=== PATIENT | female | born 1950 | race Caucasian/White ===

== ENCOUNTER 2021-09-17 13:00 | Outpatient (RCR) | payer MEDICARE, OTHER, SELFPAY ==
--- NOTE | 2021-08-17 14:58 | HP.PTEVAL ---
Patient's Visit Information BRYAN GARCIA is a 70 year old F referred to Physical Therapy by BRENDEN Giraldo with a diagnosis of FM. Date of Evaluation: 08/17/21 Physical Therapist: Onesimo Pretty, RENETTAT, OCS, CSCS - Visit Plan Frequency: 2x /Week Duration: 4-6 Weeks Plan: Has many allergies and pacemaker...2x/week to please teach HEP with pics for patient to do at home consisting of... HS and quad stretch. rows and pot stirs. bridging and quadruped opposites if tolerates. heel rasies. band sidesteps. squats. RDL. abs and extension. 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 Muscles are too weak. has ALS and she has to stay close by. Knees hurt all over and has bakers cyst . R>L. Up to 6/10 with kneeling or getting up off floor. Steps are 6/10 and has them to do at home. Uses handrail. Typically 1/10 when NWB. Back hurts centrally , no x rays, has hurt for long time since has to transfer > 1 yr. 2/10 at rest, standing too long is 8/10. Sleep is interrupted as it takes her longer time 30 minutes to get to sleep if she has been active. Sitting and MH help. Not employed, retired from [employer]. Homeschools grandchildren and takes care of . 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 Basic ADLs are getting done but they hurt, cleaning is getting difficult to mop floor. No leg numbness or tingling. - Pain LBP Pain Intensity (Out of 10): 1 Pain Intensity Range: 1, 9 Knees Pain Intensity (Out of 10): 1 Pain Intensity Range: 1, 7 - Objective spO2 96 after ambulation and 88 HR. Ambulates I, fatigued only slightly after 400 feet adn steps. Steps reciprocally needing one rail and not shifting weight FW. Transfers I bed and chair. UE AROM WFL. LB AROM ext is mildly painful and min limited, SB hurt centrally and min limited, flexion is tight and not painful, min limited in lumbar region. LE AROM WFL, HS and quads min tight. HIP, knee and ankle aROM WFL. reflexes 2/3 patella and achilles. Sensation LE WNL to gross light touch. strength EL 3+ in hip abd and ext, 4- hip flexion, knee ext and flexion 4- and ankles 4 way 4+/5. No c/o pain with these tests. - Balance/Special Test Scores Lower Extremity Functional Score: 27 - Goals Goal 1:: Full Lumbar ROM without pain Goal Time Frame: 2-4 Weeks Goal 2:: Pt I appropr HEP to limit future problems for strengthening. Goal Time Frame: 2-4 Weeks - Rehabilitation Potential Physical Therapy Diagnosis: weakness limiting function at home and causing pain. Rehabilitation Potential: Good - Anticipated Interventions Patient/Client Instruction: Educate patient on: Condition, Plan of Care For the Purpose of:: To decrease pain, To increase ROM, To improve muscle performance and motor function, To increase tolerance to activity/condition/position Therapeutic Exercise to Include: Strength training, Flexibilty training, Gait and locomotor training, Passive ROM, Active ROM For the Purpose of:: To decrease pain, To improve nutrient delivery to tissue, To improve muscle performance and motor function, To increase tolerance to activity/condition/position, To improve ability of physical actions for home/community/work/leisure Thank you for the opportunity to evaluate your patient. For Medicare and Medicare HMO plans, please review the plan of care and approve it. It will need to be FAXED BACK to us at [phone] for Medicare purposes. For Medicare only, by signing this I certify the plan of care. Please let me know if there are questions or concerns regarding this plan of care. Physician Signature: Date:
--- NOTE | 2021-09-17 13:44 | HP.PTDCSUM ---
It has been my pleasure to treat BRYAN GARCIA referred by BRENDEN Giraldo, with the diagnosis of FM for a total of 8 visit(s). Discharge Date: 09/17/21 Please see the following information for a summary of their discharge status. Subjective: Much better. balance feels better and can do more things at home without as much pain. Knots are gone. knee less swollen. No f/u with doctor.She can take it from here with HEP. LBP Pain Intensity (Out of 10): 2 Knees Pain Intensity (Out of 10): 2 % Improvement: 50 Objective/Function: Good l/S AROM without pain increase today. pt feeling better andd stronger adn i with HEP Goal 1:: Full Lumbar ROM without pain Goal Progress: Goal Met Goal 2:: Pt I appropr HEP to limit future problems for strengthening. Goal Progress: Goal Met Plan: d/c Discharge Comments: will do HEP. If there are questions or concerns regarding this patient's physical therapy, please feel free to call me at [phone]. Thank you for the referral of this patient. Sincerely, Onesimo Pretty, DPT, OCS, CSCS Balance/Gait/Functional tests - Balance/Special Test Scores Lower Extremity Functional Score: 52
== END 2021-09-17 14:16 | disposition home or self-care (01) ==
LOC: PT 13:00
PROVIDERS: PCP Physician Assistant; Referring Provider Physician Assistant; Visit Provider Physician Assistant
DX: M79.7 Fibromyalgia (principal)
CPT/HCPCS: 97110; 97162; 97164

== ENCOUNTER 2024-02-10 14:30 | Outpatient (RCR) | payer MEDICARE, OTHER, SELFPAY ==
--- NOTE | 2023-12-15 10:31 | HP.PTEVAL ---
Patient's Visit Information Visit Information Visit Information: BRYAN GARCIA is a 73 year old F referred to Physical Therapy by VARGHESE Cortes with a diagnosis of CERVICAL RADICULOPATHY. Date of Evaluation: 12/15/23 Physical Therapist: Sravan Nguyễn, PT, Cert MDT, OCS Visit Plan Frequency: 2x /Week Plan: PRECAUTION:PACEMAKER PT INTERVENTIONS CERVICAL /POSTURAL EX'S ,US ,MHP ,MANUALS THERAPY(STM /MANUAL TRACTION) AND TRAIL ICTX Subjective Subjective: This 73 y/o male presents to physical therapy cervical radiculopathy. Patient has cervical pain many years which has progressively worse in right arm. Seen PA recommended PT and x-rays showed DDD severe and foraminal stenosis. Patient sees massage and chiropractor. Patient located cervical base and radicular symptoms to lateral deltoid to elbow . Denies paresthesia/tingling-. Denies BERNSTEIN /tinnitus/nausea. Patient sleeping okay. Aggravating extended sitting ,driving ,turning causing ache.Alleviating massage and heat. Patient pain affects QOL and function/ADLS . Patient goals to decrease pain.PRECAUTION: pacemaker SOCIAL: retired VOCATION:retired Pain Bilateral Neck: Pain Intensity (Out of 10): 2 Pain Intensity Range: 10 Right Shoulder: Pain Intensity (Out of 10): 3 Pain Intensity Range: 10 Objective Objective: POSTURE: mild forward posture ,rounded shoulders head NEURO: denies parestehesia/tingling- C5-6-7 2/3 PALPATION: tender UT/levator/paraspinals AROM: BUE WFL CERVICAL ROM: flexion min loss ,extension mod loss ,rotation/lateral flexion min/mod loss MMT: BUE 4/5 grossly Special Tests C/S Radiculapathy - Left Upper limb tension test: Negative C/S Radiculapathy - Right Upper limb tension test: Negative C/S Radiculapathy - Left Spurlings: Negative C/S Radiculapathy - Right Spurlings: Negative C/S Radiculapathy - Left Cervical distraction: Negative C/S Radiculapathy - Right Cervical distraction: Negative C/S Radiculapathy - Left Relief test: Negative C/S Radiculapathy - Right Relief test: Negative C/S Radiculapathy - Valsalva: Negative Sharp Karen: Negative Vertebral Artery Test: Negative Alar Ligament Test: Negative Cervical Sitting: Protrusion - Mechanical Response: No effect Cervical Sitting: Protrusion - Symptoms During Testing: No effect Cervical Sitting: Protrusion - Symptoms After Testing: No effect Cervical Sitting: Retraction - Mechanical Response: No effect Cervical Sitting: Retraction - Symptoms During Testing: No effect Cervical Sitting: Retraction - Symptoms After Testing: No effect Cervical Sitting: Retraction-Extension - Mechanical Response: No effect Cerv Sitting: Retraction-Extension - Symptoms During Testing: No effect Cerv Sitting: Retraction-Extension - Symptoms After Testing: No effect Cervical Sitting: Sidebend Right - Mechanical Response: No effect Cervical Sitting: Sidebend Right - Symptoms During Testing: No effect Cervical Sitting: Sidebend Right - Symptoms After Testing: No effect Cervical Sitting: Sidebend Left - Mechanical Response: No effect Cervical Sitting: Sidebend Left - Symptoms During Testing: No effect Cervical Sitting: Sidebend Left - Symptoms After Testing: No effect Cervical Sitting: Rotation Right - Mechanical Response: No effect Cervical Sitting: Rotation Right - Symptoms During Testing: No effect Cervical Sitting: Rotation Right - Symptoms After Testing: No effect Cervical Sitting: Rotation Left - Mechanical Response: No effect Cervical Sitting: Rotation Left - Symptoms During Testing: No effect Cervical Sitting: Rotation Left - Symptoms After Testing: No effect Cervical Sitting: Flexion - Mechanical Response: No effect Cervical Sitting: Flexion - Symptoms During Testing: No effect Cervical Sitting: Flexion - Symptoms After Testing: No effect Balance/Special Test Scores Oswestry Neck Score: 22 Goals Goal 1:: Patient to be I with HEP for cervical Goal Time Frame: 4-6 Weeks Goal 2:: Patient to demonstrate 50% improvement with less pain and improved function Goal Time Frame: 4-6 Weeks Goal 3:: Patient to improve cervical ROM for function of recovery to turn neck with driving Goal Time Frame: 4-6 Weeks Goal 4:: Patient improve neck oswestry score by 5 points to improve function and QOL. Goal Time Frame: 4-6 Weeks Rehabilitation Potential Physical Therapy Diagnosis: This patient bernstein severe DDD with foraminal stenosis affecting right arm with pain with positioning and motion testing better with manual traction thus benefit from skilled PT Rehabilitation Potential: Good Anticipated Interventions Patient/Client Instruction: Educate patient on: Condition and Plan of Care For the Purpose of:: To decrease pain, To increase ROM, To improve muscle performance and motor function, To increase tolerance to activity/condition/position, To improve ability of physical actions for home/community/work/leisure, To improve health of tissue, To decrease soft tissue restriction, To increase flexibility/ROM, To reduce risk of recurrence and To improve tolerance to ADL's Therapeutic Exercise to Include: Strength training, Postural training, Flexibilty training and Active ROM For the Purpose of:: To decrease pain, To increase ROM, To improve muscle performance and motor function, To improve ability to perform ADL's, To improve ability of physical actions for home/community/work/leisure, To improve health of tissue, To decrease soft tissue restriction, To increase flexibility/ROM, To reduce risk of recurrence and To improve tolerance to ADL's Manual Therapy Techniques to Include: Soft tissue mobilization Comment: CERVUCAL TRACTION For the Purpose of:: To decrease pain, To increase ROM, To improve health of tissue, To decrease soft tissue restriction and To increase flexibility/ROM Thermo therapy (hot pack): Yes Ultrasound (thermal/non thermal): Yes For the Purpose of:: To increase ROM, To improve nutrient delivery to tissue, To increase oxygenation perfusion, To improve health of tissue and To decrease soft tissue restriction Text: Thank you for the opportunity to evaluate your patient. For Medicare and Medicare HMO plans, please review the plan of care and approve it. It will need to be FAXED BACK to us at [phone] for Medicare purposes. For Medicare only, by signing this I certify the plan of care. Please let me know if there are questions or concerns regarding this plan of care. Physician Signature: Date:
--- NOTE | 2024-01-12 17:57 | HP.PTREVAL ---
Re-Evaluation Intro: Donna Sun, STEAMING CABINET TENDER, It has been my pleasure to treat BRYAN GARCIA over the last 10 visits for CERVICAL RADICULOPATHY. Please see the progress note below for an update on the physical therapy plan of care! Subjective Subjective: Pain increase with OH activities reaching .lifting Turning neck with stiffness Sleeping better at night Able to do more with less pinching .but strethes help Objective Objective/Function: * Patient will continue to benefit from skilled PT to improve Cervical and decrease pain to improve function PT continues to be appropriate and goals updated* POSTURE: mild forward posture ,rounded shoulders head NEURO: denies parestehesia/tingling- C5-6-7 2/3 PALPATION: tender UT/levator/paraspinals AROM: BUE WFL CERVICAL ROM: flexion min loss ,extension mod loss ,rotation/lateral flexion min/mod loss MMT: BUE 4/5 grossly Plan Plan Plan: PRECAUTION: PACEMAKER PT INTERVENTIONS CERVICAL/POSTURAL EX'S, US, MHP, MANUALS THERAPY (STM /MANUAL TRACTION). Balance/Gait/Functional tests Balance/Special Test Scores Oswestry Neck Score: 18 Goals Goals Goal 1:: Patient to be I with HEP for cervical Goal Time Frame: 4-6 Weeks Goal 2:: Patient to demonstrate 60% improvement with less pain and improved function ( new goal) Goal Time Frame: 4-6 Weeks Goal 3:: Patient to improve cervical ROM for function of recovery to turn neck with driving Goal Time Frame: 4-6 Weeks Goal Progress: Progressing Goal 4:: Patient improve neck oswestry score by 5 points to improve function and QOL.( new goal) Goal Time Frame: 4-6 Weeks Anticipated Interventions Anticipated Interventions Patient/Client Instruction: Educate patient on: Condition and Plan of Care For the Purpose of:: To decrease pain, To increase ROM, To improve muscle performance and motor function, To increase tolerance to activity/condition/position, To improve ability of physical actions for home/community/work/leisure, To improve health of tissue, To decrease soft tissue restriction, To increase flexibility/ROM, To reduce risk of recurrence and To improve tolerance to ADL's Therapeutic Exercise to Include: Strength training, Postural training, Flexibilty training and Active ROM For the Purpose of:: To decrease pain, To increase ROM, To improve muscle performance and motor function, To improve ability to perform ADL's, To improve ability of physical actions for home/community/work/leisure, To improve health of tissue, To decrease soft tissue restriction, To increase flexibility/ROM, To reduce risk of recurrence and To improve tolerance to ADL's Manual Therapy Techniques to Include: Soft tissue mobilization Comment: CERVUCAL TRACTION For the Purpose of:: To decrease pain, To increase ROM, To improve health of tissue, To decrease soft tissue restriction and To increase flexibility/ROM Thermo therapy (hot pack): Yes Ultrasound (thermal/non thermal): Yes For the Purpose of:: To increase ROM, To improve nutrient delivery to tissue, To increase oxygenation perfusion, To improve health of tissue and To decrease soft tissue restriction Re-Evaluation Ending Re-evaluation ending: Please do not hesitate to contact me at [phone] by phone or if you have questions or concerns regarding this new plan of care! Sincerely, Sravan Nguyễn, PT, Cert MDT, OCS
--- NOTE | 2024-02-10 14:58 | HP.PTDCSUM ---
Discharge Summary D/C summary: It has been my pleasure to treat BRYAN GARCIA referred by VARGHESE Cortes, with the diagnosis of CERVICAL RADICULOPATHY for a total of 18 visit(s). Discharge Date: 02/10/24 Please see the following information for a summary of their discharge status. Subjective Subjective: Muscle pain with knots But Im able to do more with housework and RTD in ~ 3 weeks Pain Bilateral Neck: Pain Intensity (Out of 10): 0 Right Shoulder: Pain Intensity (Out of 10): 2 Overall Improvement % Improvement: 75 Objective Objective/Function: mild forward posture ,rounded shoulders head NEURO: denies parestehesia/tingling- C5-6-7 2/3 PALPATION: tender UT/levator/paraspinals AROM: BUE WFL CERVICAL ROM: flexion min loss ,extension mod loss ,rotation/lateral flexion min/mod loss MMT: BUE 4/5 grossly Goals Goal 1:: Patient to be I with HEP for cervical Goal Progress: Goal Met Goal 2:: Patient to demonstrate 60% improvement with less pain and improved function ( new goal) Goal Progress: Goal Met Goal 3:: Patient to improve cervical ROM for function of recovery to turn neck with driving Goal Progress: Goal Met Goal 4:: Patient improve neck oswestry score by 5 points to improve function and QOL.( new goal) Goal Progress: Goal Met Plan Plan: D/C D/C Information Discharge Comments: HEP d/c sentence: If there are questions or concerns regarding this patient's physical therapy, please feel free to call me at [phone]. Thank you for the referral of this patient. Sincerely, Sravan Nguyễn, PT, Cert MDT, OCS Balance/Gait/Functional tests Balance/Special Test Scores Oswestry Neck Score: 18 Improvement % Improvement: 75
== END 2024-02-10 19:00 | disposition home or self-care (01) ==
LOC: PT 14:30
PROVIDERS: PCP Physician Assistant; Referring Provider Clinical Nurse Specialist Adult Health; Visit Provider Clinical Nurse Specialist Adult Health
DX: M54.12 Radiculopathy, cervical region (principal)
CPT/HCPCS: 97012; 97110; 97140; 97162; 97530